=== PATIENT | male | born 1965 | race Caucasian/White ===

== ENCOUNTER 2024-04-28 11:20 | Emergency (ER) | payer OTHER ==
[~2024-04-28] VITALS: Ht 172.7 cm; Wt 95.3 kg
[2024-04-28] MEDS ORDERED: WARF-58 PO (11:29)
[2024-04-28 12:02] LABS: BASOPHILS % (AUTO) 0.4 % (0.0-2.0); EOSINOPHILS # (AUTO) 0.1 K/uL (0.0-0.7); EOSINOPHILS % (AUTO) 1.2 % (0.0-7.0); HEMATOCRIT 42.1 % (36.7-47.1); HEMOGLOBIN 14.2 g/dL (12.5-16.3); LYMPHOCYTES # (AUTO) 2.3 K/uL (0.8-4.8); MEAN CORPUSCULAR HEMOGLOBIN 27.5 uug (23.8-33.4); MEAN CORPUSCULAR HGB CONC 34 g/dL (32.5-36.3); MEAN CORPUSCULAR VOLUME 81.7 fL (73.0-96.2); MONOCYTES # (AUTO) 0.4 K/uL (0.1-1.30); MONOCYTES % (AUTO) 5.6 % (0.0-11.0); NEUTROPHILS # (AUTO) 4.3 K/uL (1.8-8.9); NEUTROPHILS % (AUTO) 60.8 % (38.5-71.5); PLATELET COUNT (AUTO) 186 K/uL (152-348); RED BLOOD CELL COUNT(AUTO) 5.16 MIL/uL (4.06-5.63); RED CELL DISTRIBUTION WIDTH 14.3 % (12.1-16.2)
[2024-04-28 12:07] LABS: CALCIUM 8.7 mg/dL (8.5-10.1); CREATININE 0.9 mg/dL (0.6-1.3); POTASSIUM 3.7 mmol/L (3.5-5.1)
[2024-04-28 12:27] LABS: DIFFERENTIAL COMMENT 1
[2024-04-28 13:39] VITALS: BP 136/95; O2SAT 96
== END 2024-04-28 13:40 | disposition home or self-care (01) ==
LOC: ER 11:20
DX: S20.219A Contusion of unspecified front wall of thorax, initial encounter (principal); R05.9 Cough, unspecified; Z79.01 Long term (current) use of anticoagulants; Z86.718 Personal history of other venous thrombosis and embolism; Z86.73 Personal history of transient ischemic attack (TIA), and cerebral infarction without residual deficits; V84.5XXA Driver of special agricultural vehicle injured in nontraffic accident, initial encounter; Y93.89 Activity, other specified; Y92.89 Other specified places as the place of occurrence of the external cause; Y99.8 Other external cause status
CPT/HCPCS: 36415; 70450; 71250; 85025; 85610; A4606; A4663

== ENCOUNTER 2025-02-18 17:13 | Emergency (ER) | payer OTHER ==
[~2025-02-18] VITALS: Ht 172.7 cm; Wt 90.7 kg
[~2025-02-18 17:13] MED LIST: WARF-58 PO
[2025-02-18 17:19] VITALS: BP 124/81
[2025-02-18] MEDS ORDERED: AMOX-319 PO (18:18)
[2025-02-18] MEDS ORDERED: TDAP DIPH,PERTUSS,TET VAC/PF 0.5 ML DISP.SYRIN IM ONE (18:21)
[2025-02-18] MEDS: TDAP DIPH,PERTUSS,TET VAC/PF 0.5 ML DISP.SYRIN IM ONE (18:26)
[2025-02-18 18:27] VITALS: BP 124/81; O2SAT 98
== END 2025-02-18 18:27 | disposition home or self-care (01) ==
LOC: ER 17:23
DX: S50.811A Abrasion of right forearm, initial encounter (principal); Z79.899 Other long term (current) drug therapy; I51.9 Heart disease, unspecified; Z86.73 Personal history of transient ischemic attack (TIA), and cerebral infarction without residual deficits; Z86.718 Personal history of other venous thrombosis and embolism; Z79.01 Long term (current) use of anticoagulants; W54.0XXA Bitten by dog, initial encounter; Y93.89 Activity, other specified; Y92.89 Other specified places as the place of occurrence of the external cause; Y99.9 Unspecified external cause status
CPT/HCPCS: 90715; A4606; A4663